=== PATIENT | female | born 1960 | race Caucasian/White ===

== ENCOUNTER 2018-12-03 06:35 | Day surgery (SDC) | payer OTHER ==
[~2018-12-03] VITALS: Ht 157.5 cm; Wt 75.7 kg
[2018-12-03] MEDS ORDERED: fentaNYL 0.05 MG/ML VIAL ONE (07:50)
[2018-12-03] MEDS ORDERED: MIDAZOLAM 2 MG/2 ML VIAL ONE (07:50)
[2018-12-03] MEDS ORDERED: LIDOCAINE 2% 100 MG/5 ML UJET TP ONE (07:51)
[2018-12-03] MEDS ORDERED: MIDAZOLAM 2 MG/2 ML VIAL IVP ONE (08:28)
[2018-12-03] MEDS ORDERED: fentaNYL 0.05 MG/ML VIAL IVP ONE (08:30)
== END 2018-12-03 09:50 | disposition home or self-care (01) ==
LOC: MOR 06:35 → MMU 06:36 → MOR 09:50
PROVIDERS: ATTEND Internal Medicine Gastroenterology
DX: D12.3 Benign neoplasm of transverse colon (principal); D12.4 Benign neoplasm of descending colon; D12.5 Benign neoplasm of sigmoid colon; K21.9 Gastro-esophageal reflux disease without esophagitis; F41.9 Anxiety disorder, unspecified; I10 Essential (primary) hypertension; K25.9 Gastric ulcer, unspecified as acute or chronic, without hemorrhage or perforation; Z80.0 Family history of malignant neoplasm of digestive organs; Z88.2 Allergy status to sulfonamides; Z79.82 Long term (current) use of aspirin; Z79.899 Other long term (current) drug therapy; Z98.890 Other specified postprocedural states
CPT/HCPCS: 36415; 43239; 45380; 45385; 86677; J2250; J3010